=== PATIENT | female | born 1950 | race Hispanic/Latino ===

== ENCOUNTER → 2018-02-23 16:27 | Outpatient (CLI) | payer MEDICAID, SELFPAY ==
[2018-02-23 17:26] LABS: Absolute Lymphocyte Count 2.53 X10^3/ul (0.83-4.51); Basophil# 0.05 X10^3/uL; Basophil% 0.5 % (0-1); Eosinophil# 0.14 X10^3/uL; Eosinophils% 1.3 % (0-5); Hemoglobin 13.1 g/dl (12.0-15.0); Lymphocyte # 2.53 X10^3/ul (4.0); Lymphocyte % 23.7 % (19-41); Mean Corp Hgb Conc 34.5 g/gl (32-36); Mean Platelet Vol. 9.5 fl (6.2-12.0); Monocyte# 0.91 X10^3/uL; Monocyte% 8.5 % (0-10); Neutrophil % 65.7 % (47-70); Platelet Count 367 K/mm3 (150-450); RBC Distribution Width CV 13.3 % (11.6-14.6); RBC Distribution Width SD 41.6 fl (35.1-43.9); Red Blood Count 4.37 M/mm3 (4.2-5.4); White Blood Count 10.7 K/mm3 (4.4-11.0)
[2018-02-23 17:29] LABS: POSITIVE COUNT NO; POSITIVE DIFFERENTIAL NO; POSITIVE MORPHOLOGY NO
[2018-02-23 18:12] LABS: ALB/GLOB Ratio 0.9 RATIO (0.9-2.4); AST(SGOT) 34 U/L (15-37); Alanine Aminotransfer ALT/SGPT 44 U/L (13-56); Albumin, Serum 3.4 g/dL (3.2-5.0); Alkaline Phosphatase 143 U/L (45-117); Anion Gap 8 (5-15); BUN 17 mg/dL (7-18); BUN/Creat Ratio 14.9 RATIO (10-20); Calcium,Total 8.6 mg/dL (8.5-10.1); Chloride 101 mmol/L (98-107); Creatinine, Serum 1.14 mg/dL (0.55-1.02); EST Glomerular Filtration Rate 51 mL/min (>60); Est Glom Filt Rate - Afr Amer 61 mL/min (>60); Globulin 3.8 g/dL (2.2-4.2); Glucose 72 mg/dL (74-106); LDH 353 U/L (84-246); Potassium 4.2 mmol/L (3.5-5.1); Protein, Total 7.2 g/dL (6.4-8.2); Sodium Level 137 mmol/L (136-145); T4 Free Direct 1.36 ng/dL (0.76-1.46); Thyroid Stim Hormone (TSH) 1.39 uIU/mL (0.358-3.74)
== END ==
PROVIDERS: Family Provider Nurse Practitioner Family; PCP Nurse Practitioner Family; Visit Provider Internal Medicine Hematology & Oncology
DX: C69.90 Malignant neoplasm of unspecified site of unspecified eye (principal); C78.7 Secondary malignant neoplasm of liver and intrahepatic bile duct
CPT/HCPCS: 36415; 80053; 83615; 84439; 84443; 85025

== ENCOUNTER 2018-03-03 06:46 | Day surgery (SDC) | payer MEDICAID, SELFPAY ==
[2018-03-03] VITALS (7 sets, daily range): BP systolic 104–117; BP diastolic 67–77; PULSE 66–72; RESP 16; TEMP 36.4–36.6; O2SAT 93–95; BMI 41.8
[2018-03-03] MEDS: Cefazolin 2 GM in 0.9% Normal Saline 100 ML IV (07:00)
--- NOTE | 2018-03-03 07:51 | PCM.DC.POR ---
Discharge Diet: No Restrictions Discharge Activity: May not drive while taking narcotic pain medications. May shower in (days): 5 - Keep port site clean and dry for 5 days then keep covered but okay to shower until the sutures are removed Lifting Restrictions: No lifting greater than 15 pounds on the side of the port for 1 week Call your doctor if your incision/area has: Continuous Slow Oozing, Sudden Increased Bleeding, Increased Pain/ Swelling, Increased Redness, Foul Smelling Discharge, Swelling at the incision site Call your doctor if you observe: Fever of 101 or Higher Change Dressing in (Days):: 2 - Continue to keep the port covered until sutures are removed which will be 10 days after surgery Remove Dressing in (days):: 2 - Okay to remove the neck bandage tomorrow to keep the one on the port for 2 days Allergies/Adverse Reactions: Allergies No Known Allergies Allergy (Verified 02/27/18 14:49) Medications to take at Discharge Acetaminophen [Tylenol] 650 mg PO Q6H PRN 02/20/18 Amlodipine [Norvasc] 5 mg PO DAILY 02/20/18 Calcipotriene/Betamethasone [Calcipotriene-Betameth Dp Oint] 60 gm TP SUSA 02/20/18 Hydrocodone Bitart/Apap 5-325 [Friendship 5MG-325MG] 1 - 2 tab PO Q6H PRN PRN 02/20/18 Ibuprofen [Advil] 200 mg PO Q6H PRN PRN 02/20/18 Ondansetron [Zofran] 8 mg PO Q8H PRN PRN 02/20/18 Lidocaine/Prilocaine [Lidocaine-Prilocaine Cream] 30 gm TP DAILY PRN PRN 30 Days #1 cream..g. 02/26/18 Losartan/Hydrochlorothiazide [Losartan-Hctz 50-12.5 mg Tab] 1 each PO DAILY 03/03/18 Triamcinolone 0.1% Ointment [Kenalog] 1 applicatio TOPICAL MOTUWETHFR 03/03/18 Primary Care Physician: Fina Mata NP-C [Primary Care Provider] - Test Results: Test results from this visit will be discussed in further detail at your follow-up appointment, if applicable. Please Follow Up With: Kristin Weaver MD - After 5:00 on the weekends call [phone] with any concerns When: Call the office for a f\u appt for 10 days from surgery for suture removal Proposed Discharge Date: 03/03/18
--- NOTE | 2018-03-03 07:54 | DCINST_ITS ---
Discharge Diet: No Restrictions Discharge Activity: May not drive while taking narcotic pain medications. May shower in (days): 5 - Keep port site clean and dry for 5 days then keep covered but okay to shower until the sutures are removed Lifting Restrictions: No lifting greater than 15 pounds on the side of the port for 1 week Call your doctor if your incision/area has: Continuous Slow Oozing, Sudden Increased Bleeding, Increased Pain/ Swelling, Increased Redness, Foul Smelling Discharge, Swelling at the incision site Call your doctor if you observe: Fever of 101 or Higher Change Dressing in (Days):: 2 - Continue to keep the port covered until sutures are removed which will be 10 days after surgery Remove Dressing in (days):: 2 - Okay to remove the neck bandage tomorrow to keep the one on the port for 2 days Allergies/Adverse Reactions: Allergies No Known Allergies Allergy (Verified 02/27/18 14:49) Medications to take at Discharge Acetaminophen [Tylenol] 650 mg PO Q6H PRN 02/20/18 Amlodipine [Norvasc] 5 mg PO DAILY 02/20/18 Calcipotriene/Betamethasone [Calcipotriene-Betameth Dp Oint] 60 gm TP SUSA 02/20 Hydrocodone Bitart/Apap 5-325 [Sunshine 5MG-325MG] 1 - 2 tab PO Q6H PRN PRN Ibuprofen [Advil] 200 mg PO Q6H PRN PRN 02/20/18 Ondansetron [Zofran] 8 mg PO Q8H PRN PRN 02/20/18 Lidocaine/Prilocaine [Lidocaine-Prilocaine Cream] 30 gm TP DAILY PRN PRN 30 Days #1 cream..g. 02/26/18 Losartan/Hydrochlorothiazide [Losartan-Hctz 50-12.5 mg Tab] 1 each PO DAILY Triamcinolone 0.1% Ointment [Kenalog] 1 applicatio TOPICAL MOTUWETHFR 03/03/18 Primary Care Physician: Fina Mata NP-C [Primary Care Provider] - Test Results: Test results from this visit will be discussed in further detail at your follow- up appointment, if applicable. Please Follow Up With: Kristin Weaver MD - After 5:00 on the weekends call [phone] with any concerns When: Call the office for a f\u appt for 10 days from surgery for suture removal Proposed Discharge Date: 03/03/18
[2018-03-03] MEDS: Bupivacaine Mpf 0.5% 30 ML VIAL (08:11)
--- NOTE | 2018-03-03 09:34 | RAD_ITS ---
STUDY: X-RAY CHEST REASON FOR EXAM: Female, 68 years old. Post port placement. TECHNIQUE: Single AP portable view of the chest. COMPARISON: None. FINDINGS: A right-sided portacatheter has been placed. The tip is in the right atrium. EKG electrodes are seen. Limited inspiratory effort. Increased markings at the lung bases suggestive of bibasilar atelectasis. There is no demonstrated pleural abnormality. Normal size heart. Normal mediastinum and winnie. Normal visualized pulmonary arteries. Normal visualized aortic arch and descending thoracic aorta. There are diffuse degenerative changes of the visualized thoracic spine. Normal visualized ribs, clavicles, and shoulders. There is no demonstrated abnormality of the visualized soft tissue structures of the upper abdomen. RAD/CXR for Line Placement IMPRESSION: The tip of the right portacatheter is in the right atrium. Bibasilar increased markings suggestive of atelectasis. Electronically Signed: Sony Galdamez MD at 10:21 EDT Tel [phone], Service support ,
--- NOTE | 2018-03-03 09:39 | OP.PCM_ITS ---
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 Placement of right IJ Port-A-Cath. 2. Use fluoroscopy. 3. Use of ultrasound Type of Anesthesia:: MAC Anesthesiologist: Fredy Black Special Medications: Ancef 2 g IV ?1 Specimen's removed: None Estimated Blood Loss (mL): <10 cc Fluids Replaced: per anesthesia Description of Procedure: After informed consent was given, the patient was brought to the operating room and placed in the supine position. Appropriate time out protocol was followed. He was then given IV conscious sedation for anesthesia. The patient 's right upper chest and neck were then prepped with a surgical skin preparation and sterile surgical drapes were placed. After proper landmarks were ascertained, the skin at the upper right chest area was then infiltrated with 1:1 mixture of 1% lidocaine with epinephrine and 0.5% maricaine. A needle trocar was then inserted into the right internal jugular vein with ultrasound guidance-multiple vessels were viewed with u/s and the right IJ was chosen-- and there was good aspiration of venous blood. A wire was then threaded into the needle trocar and this was visualized under fluoroscopy to ensure that the wire was in the superior vena cava. Once this was done, then the needle trocar was removed. A small skin isis was made with an 11 blade knife at the wire entrance site. The dilator with the introducer sheath attached was then placed over the wire into the right internal jugular vein via the Seldinger technique and this was visualized under fluoroscopy. The dilator and sheath were in proper position as visualized by fluoroscopy. A subcutaneous pocket was then created caudad to the catheter insertion site. A transverse skin incision was made after the skin and subcutaneous tissues were infiltrated with local anesthetic. Blunt dissection was then used to create a space large enough for placement of the subcutaneous port. The catheter was then tunneled into the subcutaneous pocket. There was noted to be a kink at the location of the neck due to location of tunnel versus location of dilator. The neck incision was slightly enlarged and the catheter was dissected to resolve the kink. The wire and dilator were then removed. The catheter was then threaded into the introducer sheath and was positioned with its tip at the junction of the superior vena cava and the right atrium as visualized under fluoroscopy. The excess catheter was transected. The catheter was then attached to the subcutaneous port using manufacturers guidelines. The catheter was flushed with a heparin saline mixture prior to placement. Hemostasis was carefully controlled with electrocautery. The port was sutured to the subcutaneous fascia using 3-0 PDS suture at two sites. The port was then placed in the subcutaneous pocket and the sutures were ligated. The incision were reapproximated with interrupted subdermal 3-0 vicryl sutures at the port site and 4-0 Vicryl in 2 layers at the right IJ incision. The skin was reapproximated with 3-0 nylon suture in a interrupted fashion at the port site. Steristrips were used for reinforcement of the skin closure at IJ insertion site and a sterile opsite dressings were applied. The patient tolerated the procedure well. Implants Used: Bard PowerPort isp M.R.I. 6Fr Lot [id number] Grafts/Implants Used: [employer] PowerPort isp M.R.I. 6Fr Lot [id number] - Complications none
== END 2018-03-03 11:08 | disposition home or self-care (01) ==
LOC: SDC 06:46 → AC 06:48
PROVIDERS: Family Provider Nurse Practitioner Family; PCP Nurse Practitioner Family; Visit Provider Surgery
PROC: (CPT 36571; principal; 2018-03-03 07:45)
DX: C69.92 Malignant neoplasm of unspecified site of left eye (principal); C78.7 Secondary malignant neoplasm of liver and intrahepatic bile duct; Z45.2 Encounter for adjustment and management of vascular access device; M19.90 Unspecified osteoarthritis, unspecified site; K21.9 Gastro-esophageal reflux disease without esophagitis; I10 Essential (primary) hypertension; N28.9 Disorder of kidney and ureter, unspecified; G47.30 Sleep apnea, unspecified; Z87.440 Personal history of urinary (tract) infections; Z87.891 Personal history of nicotine dependence; Z79.891 Long term (current) use of opiate analgesic; Z79.899 Other long term (current) drug therapy
CPT/HCPCS: 00532; 36571; 71045; 77001; J7120; C1788; J2405

== ENCOUNTER 2018-03-22 15:06 | Emergency (ER) | payer MEDICAID, SELFPAY ==
[2018-03-22 15:08] VITALS: BP 134/73; PULSE 83; RESP 17; TEMP 36.5; O2SAT 95; BMI 265.5
--- NOTE | 2018-03-22 15:29 | EKG12_ITS ---
Test Reason : FATIGUE Blood Pressure : / mmHG Vent. Rate : 078 BPM Atrial Rate : 078 BPM P-R Int : 148 ms QRS Dur : 068 ms QT Int : 378 ms P-R-T Axes : 031 008 030 degrees QTc Int : 430 ms Normal sinus rhythm Borderline Low voltage QRS Confirmed by BERNABE MYRICK, TIFF ([id number]), proposal editor PENNIE TRAN ([id number]) on 03/25/2018 10:52:58 AM Referred By: CHALINO Confirmed By:TIFF KIDD MD
--- NOTE | 2018-03-22 15:32 | RAD_ITS ---
STUDY: X-RAY CHEST REASON FOR EXAM: Female, 68 years old. Weakness TECHNIQUE: Single AP portable view of the chest. COMPARISON: 03/03/2018 FINDINGS: Left Mediport catheter terminates in the mid SVC.. The lungs are clear and expanded. There is no demonstrated pleural abnormality. Normal size heart. Normal mediastinum and winnie. Normal visualized pulmonary arteries. Normal visualized aortic arch and descending thoracic aorta. Normal visualized thoracic spine. Normal visualized ribs, clavicles, and shoulders. There is no demonstrated abnormality of the visualized soft tissue structures of the upper abdomen. RAD/Chest 1 View (Portable) IMPRESSION: No acute chest disease. Electronically Signed: Chavez Andrade MD at 16:39 EDT , Service support ,
[2018-03-22 16:07] LABS: Absolute Lymphocyte Count 2.13 X10^3/ul (0.83-4.51); Absolute Neutrophil Count 7.5 X10^3/uL (2.0-7.7); Basophil# 0.04 X10^3/uL; Basophil% 0.4 % (0-1); Eosinophil# 0.07 X10^3/uL; Eosinophils% 0.6 % (0-5); Hematocrit 37.4 % (37-47); Hemoglobin 12.6 g/dl (12.0-15.0); Lymphocyte # 2.13 X10^3/ul (4.0); Lymphocyte % 19.8 % (19-41); Mean Corp Hgb Conc 33.7 g/gl (32-36); Mean Corpuscular Hgb 29.3 pg (27.0-32.0); Mean Platelet Vol. 9.6 fl (6.2-12.0); Monocyte# 1.02 X10^3/uL; Monocyte% 9.5 % (0-10); Neutrophil # 7.49 X10^3/uL (2.7-7.7); Neutrophil % 69.4 % (47-70); Platelet Count 326 K/mm3 (150-450); RBC Distribution Width CV 13.7 % (11.6-14.6); RBC Distribution Width SD 42.9 fl (35.1-43.9); White Blood Count 10.8 K/mm3 (4.4-11.0)
[2018-03-22 16:09] LABS: POSITIVE COUNT NO; POSITIVE DIFFERENTIAL NO; POSITIVE MORPHOLOGY NO
[2018-03-22 16:10] VITALS: BP 136/73; BP 145/86; BP 147/87; PULSE 76; PULSE 86; PULSE 93
[2018-03-22] MEDS: 0.9% Normal Saline 1,000 ML 150 ML IV (16:21)
[2018-03-22 16:30] LABS: Bacteria 0 SEEN /hpf (None Seen); Mucous, Urine 0 SEEN /hpf (<or=2+); Red Blood Cells-Urine 0 SEEN /hpf (0-5); White Blood Cells 0 SEEN /hpf (0-5)
[2018-03-22 16:37] LABS: ALB/GLOB Ratio 0.9 RATIO (0.9-2.4); AST(SGOT) 52 U/L (15-37); Alanine Aminotransfer ALT/SGPT 66 U/L (13-56); Albumin, Serum 3.3 g/dL (3.2-5.0); Alkaline Phosphatase 199 U/L (45-117); Anion Gap 13 (5-15); BUN 40 mg/dL (7-18); BUN/Creat Ratio 36.4 RATIO (10-20); Calcium,Total 8.7 mg/dL (8.5-10.1); Chloride 100 mmol/L (98-107); EST Glomerular Filtration Rate 53 mL/min (>60); Est Glom Filt Rate - Afr Amer 64 mL/min (>60); Estimated Creatinine Clearance 81.05 ml/min; Globulin 3.5 g/dL (2.2-4.2); Glucose 77 mg/dL (74-106); Potassium 4.5 mmol/L (3.5-5.1); Protein, Total 6.8 g/dL (6.4-8.2); Sodium Level 138 mmol/L (136-145)
[2018-03-22 16:38] LABS: BNP,B-Type NATRIURETIC PEPTIDE 48.2 pg/mL (0-100)
[2018-03-22 16:42] LABS: Color, Urine Yellow (Yellow); Glucose, Dipstick Normal (Normal); Ketone-Dipstick Negative (Negative); Leukocyte Esterase-Dipstick Negative /ul (Negative); Nitrite-Dipstick Negative (Negative); Occult Blood-Urine Negative /ul (Negative); Protein-Dipstick Negative (Negative); Urine Bilirubin Dipstick Negative (Negative); Urine Clarity Clear (Clear); Urine Urobilinogen Normal (Normal); Urine pH 6.5 (5.0 - 8.0)
[2018-03-22 16:47] LABS: Squamous Epithelial Cells - UA 0-5 SEEN /hpf (5-10)
--- NOTE | 2018-03-22 17:05 | CT_ITS ---
STUDY: CT BRAIN WITH AND WITHOUT CONTRAST REASON FOR EXAM: Female, 68 years old. Headache. History of ocular lymphoma. RADIATION DOSAGE (If Supplied By Facility): CTDIvol = ( 44.99 ) mGy, DLP = ( 1547.23 ) mGycm TECHNIQUE: Transaxial CT imaging of the brain was performed pre and post contrast administration. The examination was performed with intravenous administration of 50ml ml of Isovue 370 contrast material. Individualized dose optimization techniques were used for this CT. COMPARISON: None. FINDINGS: Normal soft tissue structures. Normal calvarium. There has been removal of the left globe with a prosthesis. Normal size ventricles and extra-axial spaces for the patient's age. Normal white matter tracts of the cerebral hemispheres. Normal basal ganglia and thalami. Normal brainstem. Normal cerebellum. There is no intracranial hemorrhage. There are no findings of an acute ischemic infarction. Normal visualized paranasal sinuses. CT/Brain/Head W/WO Contrast IMPRESSION: Normal unenhanced and enhanced CT scan of the brain. Electronically Signed: Chavez Andrade MD at 18:19 EDT , Service support ,
[2018-03-22 17:22] VITALS: BP 125/80; PULSE 85; RESP 16; O2SAT 94
[2018-03-22 19:07] VITALS: BP 126/68; PULSE 74; RESP 16; O2SAT 94
--- NOTE | 2018-03-22 19:52 | ED.VISSUMM ---
- ER Visit Summary Date of Service: 03/22/18 Chief Complaint: [Weakness] History of Present Illness: The patient is a 68 F [presents the emergency department complaint of generalized weakness that started 2-3 days ago. Patient states that her legs just generally feel weak. 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 Patient for the last 3 days has been feeling somewhat dizzy. Patient also complains of intermittent headaches. Patient denies urinary symptoms. She denies fever. She denies chest pain or abdominal pain. Patient has had some mild complaint of dyspnea.] Physical Examination: [HEENT-PERRLA, EOMI. Cranial nerves II through XII grossly intact. TMs clear. Mucous membranes moist. No adenopathy. Patient nontoxic-appearing. Cardiovascular-regular rate and rhythm without murmur or ectopy Lungs-clear to auscultation, chest wall stable without crepitus or subcu emphysema Abdomen-normoactive bowel sounds, soft, nontender, no rebound or rigidity, no peritoneal signs. Extremities-intact ?4, normal range of motion, normal pulses, atraumatic] Test Results: [EKG obtained arrival shows sinus rhythm with a ventricular rate of 78 bpm. CBC with differential showing a 10.8, hemoglobin 12.6, hematocrit 37, platelets 326. Chemistries unremarkable. LFTs showed an alk phos 199, ALT 66, AST 52. Troponin was less than 0.015. CT scan of the brain with and without contrast was normal. Orthostatics were negative. Urinalysis was normal.] Emergency Department Course and Treatment: [Patient was given a liter normal same fluid bolus] Treatment Plan: [I discussed case with Kendra Riojas who is covering for the patient's oncologist. It is possible that her symptoms are due to the patient's immunotherapy. They will follow up with patient on outpatient basis.] Disposition: [Discharged home in stable condition] Impression: [Generalized weakness] This note was generated with mymission2 dictation software. It may contain incorrect words, spelling, and punctuation that were not noted in review of the chart prior to signing ED Disposition - Plan for ED Patient: Chief Complaint: Fatigue Referrals: Fina Mata, RENETTA-C [Primary Care Provider] -
[2018-03-22 19:54] VITALS: BP 136/68; PULSE 84; RESP 16; O2SAT 97
--- NOTE | 2018-03-22 19:54 | ED.DEP ---
ED Disposition - Plan for ED Patient: Chief Complaint: Fatigue Instructions: ED Weakness [facility] Referrals: Fina Mata, RENETTA-C [Primary Care Provider] - Additional Instructions: See Dr. Christianson , their office will call you
--- NOTE | 2018-03-22 19:55 | ED.DCSUM_ITS ---
- ER Visit Summary Date of Service: 03/22/18 Chief Complaint: [Weakness] History of Present Illness: The patient is a 68 F [presents the emergency department complaint of generalized weakness that started 2-3 days ago. Patient states that her legs just generally feel weak. 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 Patient for the last 3 days has been feeling somewhat dizzy. Patient also complains of intermittent headaches. Patient denies urinary symptoms. She denies fever. She denies chest pain or abdominal pain. Patient has had some mild complaint of dyspnea.] Physical Examination: [HEENT-PERRLA, EOMI. Cranial nerves II through XII grossly intact. TMs clear. Mucous membranes moist. No adenopathy. Patient nontoxic-appearing. Cardiovascular-regular rate and rhythm without murmur or ectopy Lungs-clear to auscultation, chest wall stable without crepitus or subcu emphysema Abdomen-normoactive bowel sounds, soft, nontender, no rebound or rigidity, no peritoneal signs. Extremities-intact ?4, normal range of motion, normal pulses, atraumatic] Test Results: [EKG obtained arrival shows sinus rhythm with a ventricular rate of 78 bpm. CBC with differential showing a 10.8, hemoglobin 12.6, hematocrit 37 , platelets 326. Chemistries unremarkable. LFTs showed an alk phos 199, ALT 66 , AST 52. Troponin was less than 0.015. CT scan of the brain with and without contrast was normal. Orthostatics were negative. Urinalysis was normal.] Emergency Department Course and Treatment: [Patient was given a liter normal same fluid bolus] Treatment Plan: [I discussed case with Kendra Riojas who is covering for the patient's oncologist. It is possible that her symptoms are due to the patient's immunotherapy. They will follow up with patient on outpatient basis.] Disposition: [Discharged home in stable condition] Impression: [Generalized weakness] This note was generated with [employer] dictation software. It may contain incorrect words, spelling, and punctuation that were not noted in review of the chart prior to signing ED Disposition - Plan for ED Patient: Chief Complaint: Fatigue Referrals: Fina Mata, RENETTA-C [Primary Care Provider] -
== END 2018-03-22 20:06 | disposition home or self-care (01) ==
PROVIDERS: Emergency Provider Emergency Medicine; Family Provider Nurse Practitioner Family; PCP Nurse Practitioner Family
DX: R53.1 Weakness (principal); C69.60 Malignant neoplasm of unspecified orbit; C78.7 Secondary malignant neoplasm of liver and intrahepatic bile duct; Z79.899 Other long term (current) drug therapy; Z87.891 Personal history of nicotine dependence
CPT/HCPCS: 36591; 70470; 71045; 80053; 81001; 83880; 84443; 84484; 85025; 93005; 96360; 96361; 99284; J7030; Q9967; A4216

== ENCOUNTER → 2018-03-26 06:39 | Outpatient (CLI) | payer MEDICAID, SELFPAY ==
--- NOTE | 2018-03-26 06:43 | MRI_ITS ---
STUDY: MRI BRAIN WITH AND WITHOUT CONTRAST REASON FOR EXAM: Female, 68 years old. 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 TECHNIQUE: Standardized multiplanar fat and water weighted pulse sequences were obtained. 10 ml of Gadavist contrast material was administered intravenously for the contrast portion of the examination. COMPARISON: February 03, 2018 FINDINGS: Normal size of the ventricles and extra-axial spaces for the patient's age. There are a limited number of small white matter hyperintensities, distributed throughout the deep white matter tracts of the cerebral hemispheres, consistent with mild chronic white matter ischemic changes. Normal bilateral basal ganglia. Normal thalami. There is no extra-axial fluid accumulation. Normal flow voids within the major intracranial circulation suggesting patency by spin echo criteria. Normal venous enhancement. There is no enhancing intra-axial or extra-axial abnormality. Normal sella turcica, pituitary gland, infundibular stalk, optic chiasm and hypothalamus. Normal tectal plate and pineal gland. Normal midbrain, jorgito and medulla. Normal cerebellum. Normal basal cisterns. Normal bilateral temporal bones. Normal bilateral internal auditory canals. There is a left globe prosthesis. No demonstrated orbital abnormality, within the constraints of a routine brain study. Normal visualized paranasal sinuses. Normal calvarium and skull base. Normal visualized soft tissue structures. Normal visualized upper cervical spine. MRI/Brain W/WO Contrast IMPRESSION: No demonstrated orbital abnormality. Electronically Signed: Kell Denton MD at 12:06 EDT Tel , Service support ,
== END ==
PROVIDERS: Family Provider Nurse Practitioner Family; PCP Nurse Practitioner Family; Visit Provider Nurse Practitioner Family
DX: R51 Headache (principal)
CPT/HCPCS: 70553; A9585